=== PATIENT | female | born 1995 | race Hispanic/Latino ===

== ENCOUNTER 2018-03-16 18:59 | Observation (INO) | payer MEDICAID ==
[~2018-03-16] VITALS: Ht 160 cm; Wt 83.5 kg
[~2018-03-16 18:59] MED LIST: DOCU-116 PO; IBUP-2077 PO
[2018-03-16] MEDS ORDERED: LACTATED RINGERS 1000ML 1,000 ML IV SCH (19:15)
[2018-03-16] MEDS ORDERED: PREN-196 PO (19:15)
[2018-03-16 19:35] LABS: APPEARANCE,URINE Clear (CLEAR); BILIRUBIN,URINE Negative (NEGATIVE); COLOR,URINE Yellow (YELLOW); GLUCOSE, URINE (UA) Negative (NEGATIVE); KETONES,URINE Negative (NEGATIVE); LEUKOCYTE ESTERASE ,URINE Negative (NEGATIVE); NITRATE,URINE Negative (NEGATIVE); OCCULT BLOOD,URINE Negative (NEGATIVE); PH,URINE 7.5 (5.0-8.0); PROTEIN,URINE Negative (NEGATIVE); UROBILINOGEN,URINE 0.2 mg/dL (0.2-1.0)
[2018-03-16] MEDS ORDERED: LACTATED RINGERS 1000ML 1,000 ML IV ONE (20:03)
== END 2018-03-16 21:07 | disposition home or self-care (01) ==
LOC: EDH 18:59 → LDH 19:09
PROVIDERS: ADMIT Obstetrics & Gynecology; ATTEND Obstetrics & Gynecology
DX: O99.513 Diseases of the respiratory system complicating pregnancy, third trimester (principal); R06.02 Shortness of breath; O62.9 Abnormality of forces of labor, unspecified; Z3A.38 38 weeks gestation of pregnancy
CPT/HCPCS: 81003; 96360; 99285; G0378 ×2; J7120

== ENCOUNTER 2018-03-20 22:38 | Inpatient (IN) | payer MEDICAID ==
[~2018-03-20] VITALS: Ht 160 cm; Wt 83.5 kg
[~2018-03-20 22:38] MED LIST changes: +PREN-196 PO
[2018-03-20] MEDS ORDERED: LACTATED RINGERS 1000ML 1,000 ML IV PRN (23:05)
[2018-03-20 23:30] LABS: APPEARANCE,URINE Clear (CLEAR); BILIRUBIN,URINE Negative (NEGATIVE); COLOR,URINE Yellow (YELLOW); GLUCOSE, URINE (UA) Negative (NEGATIVE); KETONES,URINE Negative (NEGATIVE); LEUKOCYTE ESTERASE ,URINE Moderate (NEGATIVE); NITRATE,URINE Negative (NEGATIVE); OCCULT BLOOD,URINE Negative (NEGATIVE); PH,URINE 6.5 (5.0-8.0); PROTEIN,URINE Negative (NEGATIVE)
[2018-03-20 23:50] LABS: BACTERIA,URINE Few /HPF (None Seen)
[2018-03-21 00:15] LABS: HEMATOCRIT 27.5 % (36-48); MEAN CORPUSCULAR HEMOGLOBIN 23.2 pg (27.0-33.0); MEAN CORPUSCULAR HGB CONC 32.3 g/dL (32.0-36.0); MEAN CORPUSCULAR VOLUME 71.7 fL (79-99); NUCLEATED RED BLOOD CELLS 0.1 % (0.0-0.19); PLATELET COUNT (AUTO) 192 K/uL (130-400); RED BLOOD CELL COUNT(AUTO) 3.84 MIL/uL (4.00-5.50); RED CELL DISTRIBUTION WIDTH 17.9 % (11.0-15.5); WHITE BLOOD COUNT (AUTO) 10.7 K/uL (4.8-10.8)
[2018-03-21] MEDS ORDERED: OXYTOCIN 10 USP UNITS/ML ONE ×2 (04:56→09:59)
[2018-03-21] MEDS ORDERED: LACTATED RINGERS 1000ML 1,000 ML IV ONE ×2 (04:56→09:59)
[2018-03-21] MEDS ORDERED: OXYTOCIN 10 USP UNITS/ML 20 UNIT in LACTATED RINGERS 1000ML 1,000 ML IV SCH (05:00)
[2018-03-21] MEDS ORDERED: PROMETHAZINE HCL 25 MG/ML 1ML AMPULE IM ONE (08:36)
[2018-03-21] MEDS ORDERED: MEPERIDINE-PF 50 MG/ML SYG ONE (08:36)
[2018-03-21] MEDS ORDERED: MEPERIDINE-PF 50 MG/ML SYG IVP SCH (08:45)
[2018-03-21] MEDS ORDERED: PROMETHAZINE HCL 25 MG/ML 1ML AMPULE IM SCH (08:45)
[2018-03-21 11:33] VITALS: BP 124/78
[2018-03-21] MEDS ORDERED: DIPH,PERTUSS(ACELL),TET VAC/PF 0.5 ML VIAL IM PRN (13:00)
[2018-03-21] MEDS ORDERED: MEASLES/MUMPS/RUBELLA VACCINE, LIVE 0.5 ML/VIAL SQ PRN (13:00)
[2018-03-21] MEDS ORDERED: ACETAMINOPHEN 325 MG TAB PO PRN (13:00)
[2018-03-21] MEDS ORDERED: LANOLIN 30GM OINTMENT TP PRN (13:00)
[2018-03-21] MEDS ORDERED: BENZOCAINE/LANOLIN/ALOE VERA 60 ML AEROSOL TP PRN (13:00)
[2018-03-21] MEDS ORDERED: ACETAMINOPHEN-CODEINE 300/30MG TAB PO PRN (13:00)
[2018-03-21] MEDS: IBUPROFEN 600 MG TABLET PO PRN (14:05)
[2018-03-21 15:27] VITALS: BP 127/85
[2018-03-21] MEDS ORDERED: METHYLERGONOVINE MALEATE 0.2 MG/1 ML ML ONE (19:12)
[2018-03-21] MEDS ORDERED: METHYLERGONOVINE MALEATE 0.2 MG/1 ML ML IM ONE (20:25)
[2018-03-21 20:28] VITALS: BP 139/88
[2018-03-21] MEDS: DOCUSATE SODIUM 100 MG CAP PO SCH (21:08)
[2018-03-22 00:22] VITALS: BP 120/74
[2018-03-22 04:15] VITALS: BP 118/60
[2018-03-22 05:15] LABS: BASOPHILS % (AUTO) 0.7 % (0.0-5.0); EOSINOPHILS % (AUTO) 1.1 % (0.0-8.0); HEMATOCRIT 26.8 % (36-48); LYMPHOCYTES % (AUTO) 22.1 % (21.0-51.0); MEAN CORPUSCULAR HEMOGLOBIN 23.6 pg (27.0-33.0); MEAN CORPUSCULAR HGB CONC 32.3 g/dL (32.0-36.0); MEAN CORPUSCULAR VOLUME 73.1 fL (79-99); MONOCYTES % (AUTO) 6.2 % (3.0-13.0); NEUTROPHILS % (AUTO) 69.9 % (40.0-77.0); PLATELET COUNT (AUTO) 184 K/uL (130-400); RED BLOOD CELL COUNT(AUTO) 3.66 MIL/uL (4.00-5.50); RED CELL DISTRIBUTION WIDTH 17.5 % (11.0-15.5); WHITE BLOOD COUNT (AUTO) 13.3 K/uL (4.8-10.8)
[2018-03-22] MEDS: IBUPROFEN 600 MG TABLET PO PRN ×2 (05:25→12:58)
[2018-03-22 07:20] VITALS: BP 114/71
[2018-03-22 08:19] LABS: HEPATITIS Bs ANTIGEN SCREEN P Negative (Negative)
[2018-03-22] MEDS: DOCUSATE SODIUM 100 MG CAP PO SCH (08:46)
[2018-03-22 11:34] VITALS: BP 123/73
== END 2018-03-22 14:35 | disposition home or self-care (01) | DRG 560 ==
LOC: LDH 22:38 → WSH 03-21 11:30
PROVIDERS: ADMIT Obstetrics & Gynecology; ATTEND Obstetrics & Gynecology
PROC: 10E0XZZ Delivery of Products of Conception, External Approach (ICD-10-PCS; principal; 2018-03-21)
PROC: 10907ZC Drainage of Amniotic Fluid, Therapeutic from Products of Conception, Via Natural or Artificial Opening (ICD-10-PCS; 2018-03-21)
PROC: 3E0234Z Introduction of Serum, Toxoid and Vaccine into Muscle, Percutaneous Approach (ICD-10-PCS; 2018-03-21)
DX: O80 Encounter for full-term uncomplicated delivery (principal); Z23 Encounter for immunization; Z37.0 Single live birth; Z3A.38 38 weeks gestation of pregnancy
CPT/HCPCS: 36415; 81001; 85025; 85027; 86592; 86850; 86900; 86901; 87340; 90707; 90715; A4606; J2175; J2210; J2550; J2590; J7120

== ENCOUNTER → 2024-08-22 | Outpatient (CLI) | payer BC, MEDICAID, OTHER ==
[~2024-08-22] MED LIST changes: -DOCU-116 PO; -IBUP-2077 PO
== END | disposition home or self-care (01) ==
LOC: SHCH 08:11
PROVIDERS: ATTEND Student in an Organized Health Care Education/Training Program
DX: R00.2 Palpitations (principal)
CPT/HCPCS: 93306